=== PATIENT | female | born 1975 | race Caucasian/White ===

== ENCOUNTER 2022-11-07 16:41 | Emergency (ER) | payer OTHER ==
[~2022-11-07] VITALS: Ht 149.9 cm; Wt 79.0 kg
[2022-11-07 16:44] VITALS: BP 113/77
[2022-11-07 17:27] LABS: CLARITY,URINE CLEAR (Clear); COLOR,URINE YELLOW (Yellow); GLUCOSE, URINE NEGATIVE (Neg); KETONES,URINE NEGATIVE (Neg); LEUKOCYTE ESTERASE ,URINE NEGATIVE (Neg); NITRITES, URINE NEGATIVE (Neg); OCCULT BLOOD,URINE NEGATIVE (Neg); PROTEIN,URINE NEGATIVE (Neg); UROBILINOGEN,URINE 0.2 E.U/dL (0.2-1.0)
[2022-11-07 17:28] LABS: UA COLLECTION TYPE CLN CATCH MIDSTREAM
[2022-11-07] MEDS ORDERED: IBUP-1984 PO (17:34)
[2022-11-07] MEDS ORDERED: ketorolac tromethamine 15mg/ml inj. IM ONE (17:35)
== END 2022-11-07 18:04 | disposition home or self-care (01) ==
LOC: ER 16:42
DX: M54.50 Low back pain, unspecified (principal); Z88.5 Allergy status to narcotic agent
CPT/HCPCS: 81003; 96372; 99283; J1885

== ENCOUNTER 2022-11-11 20:51 | Emergency (ER) | payer OTHER ==
[~2022-11-11] VITALS: Ht 149.9 cm; Wt 77.7 kg
[~2022-11-11 20:51] MED LIST: IBUP-1984 PO
[2022-11-11 22:19] VITALS: BP 108/78
[2022-11-11] MEDS ORDERED: ondansetron/PF 4mg/2ml inj IV STA (22:30)
--- NOTE | 2022-11-11 22:40 | NUR ---
PT GIVEN FOOD AND MILK PER VO FROM ER PROVIDER
[2022-11-11 22:43] LABS: BASOPHILS # (AUTO) 0.1 X10'3 (0-0.2); BASOPHILS % (AUTO) 1.1 % (0-1); EOSINOPHILS # (AUTO) 0.3 X10'3 (0-0.9); EOSINOPHILS % (AUTO) 3.5 % (0-6); HEMOGLOBIN 12.8 g/dl (12.0-16.0); LYMPHOCYTES # (AUTO) 3.5 X10'3 (1.1-4.8); LYMPHOCYTES % (AUTO) 36.5 % (21-51); MEAN CORPUSCULAR HEMOGLOBIN 29.6 PG (27.0-31.0); MEAN CORPUSCULAR HGB CONC 33.7 g/dL (33.0-36.5); MEAN PLATELET VOLUME 9.3 FL (7.4-10.4); MONOCYTES # (AUTO) 0.8 X10'3 (0-0.9); MONOCYTES % (AUTO) 8.6 % (2-12); NEUTROPHILS # (AUTO) 4.9 X10'3 (1.8-7.7); NEUTROPHILS % (AUTO) 50.3 % (42-75); PLATELET COUNT 249 X10'3 (140-440); RED BLOOD COUNT 4.32 X10'6 (4.20-5.60); RED CELL DISTRIBUTION WIDTH 14.5 % (11.5-14.5); WHITE BLOOD COUNT 9.7 X10'3 (4.5-11.0)
[2022-11-11 23:04] LABS: ALANINE AMINOTRANSFERASE 24 U/L (12-78); ALBUMIN 3.8 G/DL (3.4-5.0); ALKALINE PHOSPHATASE 70 IU/L (46-116); ASPARTATE AMINO TRANSFERASE 20 U/L (10-37); BILIRUBIN,TOTAL 0.2 MG/DL (0.1-1.0); CALCIUM 9.7 MG/DL (8.5-10.1); LIPASE 71 U/L (73-393); TOTAL CARBON DIOXIDE 28.8 MMOL/L (24-32)
[2022-11-11 23:25] LABS: ANION GAP 10 (8-16); CHLORIDE 104 MMOL/L (99-107); GLUCOSE 94 MG/DL (70-104); POTASSIUM 4.2 MMOL/L (3.5-5.1); SODIUM 143 MMOL/L (135-145)
[2022-11-11 23:26] LABS: ALBUMIN/GLOBULIN RATIO 1.2 (1.1-1.5); BLOOD UREA NITROGEN 18 MG/DL (7-18); CREATININE 0.82 MG/DL (0.40-0.90); TOTAL PROTEIN 6.9 G/DL (6.4-8.2); eGFR 75 ML/MIN
[2022-11-11 23:31] LABS: CLARITY,URINE SLIGHTLY CLOUDY (Clear); COLOR,URINE YELLOW (Yellow); GLUCOSE, URINE NEGATIVE (Neg); KETONES,URINE NEGATIVE (Neg); LEUKOCYTE ESTERASE ,URINE MODERATE (Neg); NITRITES, URINE NEGATIVE (Neg); OCCULT BLOOD,URINE NEGATIVE (Neg); PH,URINE 6.5 (4.8-8.0); PROTEIN,URINE NEGATIVE (Neg); URINE HCG NEGATIVE (NEG); UROBILINOGEN,URINE 0.2 E.U/dL (0.2-1.0)
[2022-11-11 23:36] LABS: UA COLLECTION TYPE CLN CATCH MIDSTREAM
[2022-11-11 23:37] LABS: BACTERIA,URINE 1+ /HPF (Neg); RBC,URINE 0-2 /HPF (0-2); SQUAMOUS EPITHELIAL CELL,UR MANY /LPF (FEW); WBC,URINE 20-30 /HPF (0-4)
--- NOTE | 2022-11-12 00:27 | NUR ---
IV DC'D PT BEING DISCHARGED DRESSING APPLIED
== END 2022-11-12 00:30 | disposition home or self-care (01) ==
LOC: ER 20:51
DX: E16.2 Hypoglycemia, unspecified (principal); I10 Essential (primary) hypertension; J45.909 Unspecified asthma, uncomplicated; E11.9 Type 2 diabetes mellitus without complications; Z88.5 Allergy status to narcotic agent
CPT/HCPCS: 36415; 80053; 81001; 81025; 82948; 83690; 85025; 96374; 99283; J2405

== ENCOUNTER 2022-11-21 13:22 | Emergency (ER) | payer OTHER ==
[~2022-11-21] VITALS: Ht 149.9 cm; Wt 77.0 kg
[2022-11-21 14:11] LABS: BASOPHILS % (AUTO) 0.4 % (0-1); EOSINOPHILS # (AUTO) 0.2 X10'3 (0-0.9); EOSINOPHILS % (AUTO) 1.7 % (0-6); HEMATOCRIT 37.7 % (35.0-45.0); HEMOGLOBIN 12.2 g/dl (12.0-16.0); LYMPHOCYTES # (AUTO) 2.9 X10'3 (1.1-4.8); LYMPHOCYTES % (AUTO) 22.3 % (21-51); MEAN CORPUSCULAR HEMOGLOBIN 28.9 PG (27.0-31.0); MEAN CORPUSCULAR HGB CONC 32.4 g/dL (33.0-36.5); MEAN CORPUSCULAR VOLUME 89.1 FL (78-98); MEAN PLATELET VOLUME 9.1 FL (7.4-10.4); MONOCYTES # (AUTO) 1.1 X10'3 (0-0.9); MONOCYTES % (AUTO) 8.6 % (2-12); NEUTROPHILS # (AUTO) 8.9 X10'3 (1.8-7.7); PLATELET COUNT 254 X10'3 (140-440); RED BLOOD COUNT 4.24 X10'6 (4.20-5.60); RED CELL DISTRIBUTION WIDTH 14.4 % (11.5-14.5); WHITE BLOOD COUNT 13.2 X10'3 (4.5-11.0)
[2022-11-21 14:22] LABS: ALANINE AMINOTRANSFERASE 28 U/L (12-78); ALBUMIN 3.8 G/DL (3.4-5.0); ALKALINE PHOSPHATASE 75 IU/L (46-116); ANION GAP 7 (8-16); ASPARTATE AMINO TRANSFERASE 12 U/L (10-37); BILIRUBIN,TOTAL 0.2 MG/DL (0.1-1.0); BLOOD UREA NITROGEN 10 MG/DL (7-18); BUN/CREATININE RATIO 13.2 (10.0-20.0); CALCIUM 9.4 MG/DL (8.5-10.1); CHLORIDE 105 MMOL/L (99-107); CREATININE 0.76 MG/DL (0.40-0.90); GLUCOSE 125 MG/DL (70-104); POTASSIUM 3.9 MMOL/L (3.5-5.1); SODIUM 142 MMOL/L (135-145); TOTAL PROTEIN 7.7 G/DL (6.4-8.2); eGFR 82 ML/MIN
[2022-11-21 14:31] LABS: ETHANOL < 0.010 GM/DL (0.0-0.010)
[2022-11-21 14:43] LABS: CLARITY,URINE SLIGHTLY CLOUDY (Clear); COLOR,URINE STRAW (Yellow); GLUCOSE, URINE NEGATIVE (Neg); KETONES,URINE NEGATIVE (Neg); LEUKOCYTE ESTERASE ,URINE NEGATIVE (Neg); NITRITES, URINE NEGATIVE (Neg); OCCULT BLOOD,URINE NEGATIVE (Neg); PH,URINE 5.5 (4.8-8.0); PROTEIN,URINE NEGATIVE (Neg); UROBILINOGEN,URINE 0.2 E.U/dL (0.2-1.0)
[2022-11-21 14:45] LABS: UA COLLECTION TYPE CLN CATCH MIDSTREAM
[2022-11-21 14:50] LABS: SQUAMOUS EPITHELIAL CELL,UR MANY /LPF (FEW)
[2022-11-21 14:51] LABS: BACTERIA,URINE 1+ /HPF (Neg); RBC,URINE 0-2 /HPF (0-2)
[2022-11-21 15:04] LABS: URINE HCG NEGATIVE (NEG)
[2022-11-21 15:10] LABS: URINE AMPHETAMINE SCREEN NEGATIVE (Neg); URINE BARBITUATE SCREEN NEGATIVE (Neg); URINE BENZODIAZEPINES SCREEN NEGATIVE (Neg); URINE CANNABINOID SCREEN NEGATIVE (Neg); URINE COCAINE SCREEN NEGATIVE (Neg); URINE METHADONE SCREEN NEGATIVE (Neg); URINE OPIATE SCREEN NEGATIVE (Neg); URINE PHENCYCLIDINE SCREEN NEGATIVE (Neg)
[2022-11-21] MEDS ORDERED: LORazepam 1 MG tablet PO ONE (16:45)
[2022-11-21] MEDS ORDERED: haloperidol lactate 5mg/ml inj IM ONE (16:45)
[2022-11-21] MEDS ORDERED: CefTRIAXone 1000mg IM Kit (w/lidocaine diluent) IM ONE (18:00)
--- NOTE | 2022-11-21 19:13 | NUR ---
PT REQUESTED THAT I PROVIDE AN UPDATE TO HER REHAB COUNSELOR, PADMINI AT [phone].
[2022-11-21] MEDS ORDERED: ibuprofen tablet 400 MG TABLET PO ONE (20:25)
[2022-11-21] MEDS ORDERED: haloperidol lactate 5mg/ml inj IM STA (22:16)
--- NOTE | 2022-11-21 22:16 | NUR ---
PT STATES HER VOICES ARE COMING BACK AND REQUESTS MEDICATIONS, DR FLANAGAN NOTIFIED AND HE TOLD ME TO GIVE HER HALDOL 5 MG IM SO THAT WAS ORDERED.
--- NOTE | 2022-11-21 22:23 | NUR ---
NO SELBY/CHARTED ON WRONG PT.
[2022-11-22] MEDS ORDERED: LORazepam 2 mg/ml vial IM ONE (02:20)
[2022-11-22 04:13] VITALS: BP 138/82
--- NOTE | 2022-11-22 07:00 | NUR ---
Pt awake and ambulated to bathroom and back to room. Pt asking when she can "see somebody" as she reports she is feeling better and wanting to be discharged.
[2022-11-22] MEDS ORDERED: BECL10.6 INH (09:00)
[2022-11-22] MEDS ORDERED: VALA500T41 PO (09:00)
[2022-11-22] MEDS ORDERED: BENZ1TAB78 PO (09:00)
[2022-11-22] MEDS ORDERED: INSU100I8 SQ (09:00)
[2022-11-22] MEDS ORDERED: TRAZ-256 PO (09:00)
[2022-11-22] MEDS ORDERED: ARIP5TAB60 PO (09:00)
[2022-11-22] MEDS ORDERED: INSU100I31 SQ (09:00)
[2022-11-22] MEDS ORDERED: GABA300C PO (09:00)
[2022-11-22] MEDS ORDERED: METF-1203 PO (09:00)
[2022-11-22] MEDS ORDERED: LORA10TA7 PO (09:00)
[2022-11-22] MEDS ORDERED: SERT-433 PO (09:00)
--- NOTE | 2022-11-22 11:00 | NUR ---
Pt currently with [facility] special librarian at bedside.
[2022-11-22] MEDS ORDERED: CLINDAMYCIN 600mg IN NS 50ML 50 ML IV ONE (11:47)
[2022-11-22] MEDS ORDERED: gabapentin 300mg capsule PO SCH (13:00)
[2022-11-22] MEDS ORDERED: insulin Lispro (HumaLOG) vial - multi-dose SQ SCH (13:00)
[2022-11-22] MEDS ORDERED: ibuprofen tablet 400 MG TABLET PO ONE (13:20)
[2022-11-22] MEDS ORDERED: CLIN-97 PO (13:26)
[2022-11-22] MEDS ORDERED: CLIN300C17 PO (14:35)
[2022-11-22] MEDS ORDERED: metFORMIN 500mg tablet PO SCH (20:00)
[2022-11-22] MEDS ORDERED: valacyclovir 500mg tablet PO SCH (20:00)
[2022-11-22] MEDS ORDERED: budesonide 0.5mg/2ml UD nebule IH SCH (21:00)
[2022-11-22] MEDS ORDERED: insulin glargine (Lantus) pen - multi-dose SQ SCH (21:00)
[2022-11-22] MEDS ORDERED: traZODone 50mg tablet PO SCH (21:00)
[2022-11-23] MEDS ORDERED: benztropine 1mg tablet PO SCH (08:00)
[2022-11-23] MEDS ORDERED: sertraline 50mg tablet PO SCH (08:00)
[2022-11-23] MEDS ORDERED: loratadine 10mg tablet PO SCH (08:00)
[2022-11-23] MEDS ORDERED: aripiprazole 5mg tablet PO SCH (08:00)
== END 2022-11-22 14:43 | disposition home or self-care (01) ==
LOC: ER 13:23
DX: R45.851 Suicidal ideations (principal); Z20.822 Contact with and (suspected) exposure to COVID-19; R44.0 Auditory hallucinations; J36 Peritonsillar abscess; I10 Essential (primary) hypertension; J45.909 Unspecified asthma, uncomplicated; E11.9 Type 2 diabetes mellitus without complications; Z59.00 Homelessness unspecified; Z88.5 Allergy status to narcotic agent; Z79.899 Other long term (current) drug therapy
CPT/HCPCS: 36415; 80053; 80305; 80320; 81001; 81025; 82948; 84443; 85025; 87081; 87811; 87880; 96365; 96372; 99285; J0696; J1630; J1815; J2060; J3490

== ENCOUNTER 2022-11-23 08:41 | Emergency (ER) | payer OTHER ==
[~2022-11-23] VITALS: Ht 152.4 cm; Wt 72.7 kg
[~2022-11-23 08:41] MED LIST changes: +ARIP5TAB60 PO; +BECL10.6 INH; +BENZ1TAB78 PO; +CLIN-97 PO; +CLIN300C17 PO; +GABA300C PO; -IBUP-1984 PO; +INSU100I31 SQ; +INSU100I8 SQ; +LORA10TA7 PO; +METF-1203 PO; +SERT-433 PO; +TRAZ-256 PO; +VALA500T41 PO
[2022-11-23 08:55] VITALS: BP 122/80
== END 2022-11-23 10:07 | disposition home or self-care (01) ==
LOC: ER 08:42
DX: J36 Peritonsillar abscess (principal); I10 Essential (primary) hypertension; J45.909 Unspecified asthma, uncomplicated; E11.9 Type 2 diabetes mellitus without complications; Z56.0 Unemployment, unspecified
CPT/HCPCS: 99281

== ENCOUNTER 2022-11-24 08:04 | Emergency (ER) | payer OTHER ==
[~2022-11-24] VITALS: Ht 149.9 cm; Wt 77.7 kg
[2022-11-24 09:22] VITALS: BP 128/88
== END 2022-11-24 09:58 | disposition home or self-care (01) ==
LOC: ER 08:04
DX: G89.29 Other chronic pain (principal); M79.671 Pain in right foot; J45.909 Unspecified asthma, uncomplicated; I10 Essential (primary) hypertension; E11.9 Type 2 diabetes mellitus without complications; Z59.00 Homelessness unspecified; Z88.5 Allergy status to narcotic agent; Z79.899 Other long term (current) drug therapy; Z79.1 Long term (current) use of non-steroidal anti-inflammatories (NSAID); Z79.82 Long term (current) use of aspirin
CPT/HCPCS: 73630; 74019; 99284

== ENCOUNTER 2022-12-02 13:13 | Emergency (ER) | payer OTHER ==
[~2022-12-02] VITALS: Ht 149.9 cm; Wt 76.8 kg
[2022-12-02 13:27] VITALS: BP 112/73
[2022-12-02] MEDS ORDERED: predniSONE 20 mg tablet PO ONE (18:15)
[2022-12-02] MEDS ORDERED: PRED20TA PO (18:20)
== END 2022-12-02 18:44 | disposition home or self-care (01) ==
LOC: ER 13:14
DX: G51.0 Bell's palsy (principal); I10 Essential (primary) hypertension; J45.909 Unspecified asthma, uncomplicated; E11.9 Type 2 diabetes mellitus without complications; G89.29 Other chronic pain; F20.9 Schizophrenia, unspecified; Z56.0 Unemployment, unspecified; Z88.5 Allergy status to narcotic agent; Z79.4 Long term (current) use of insulin; Z79.899 Other long term (current) drug therapy
CPT/HCPCS: 82948; 99283; J7512

== ENCOUNTER 2022-12-05 13:46 | Emergency (ER) | payer OTHER ==
[~2022-12-05] VITALS: Ht 149.9 cm; Wt 77.0 kg
[~2022-12-05 13:46] MED LIST changes: +PRED20TA PO
[2022-12-05 13:50] VITALS: BP 129/78
== END 2022-12-05 14:44 | disposition home or self-care (01) ==
LOC: ER 13:47
DX: E11.65 Type 2 diabetes mellitus with hyperglycemia (principal); I10 Essential (primary) hypertension; J45.909 Unspecified asthma, uncomplicated; F20.9 Schizophrenia, unspecified; G89.29 Other chronic pain; Z59.00 Homelessness unspecified; Z88.5 Allergy status to narcotic agent; Z79.899 Other long term (current) drug therapy; Z79.1 Long term (current) use of non-steroidal anti-inflammatories (NSAID); Z79.2 Long term (current) use of antibiotics
CPT/HCPCS: 82948; 99282; 99283

== ENCOUNTER 2022-12-20 15:06 | Inpatient (IN) | payer MEDICAID, OTHER ==
[~2022-12-20] VITALS: Ht 149.9 cm; Wt 77.0 kg
[~2022-12-20 15:06] MED LIST changes: -PRED20TA PO
[2022-12-20 16:29] LABS: BASOPHILS # (AUTO) 0.1 X10'3 (0-0.2); BASOPHILS % (AUTO) 0.9 % (0-1); EOSINOPHILS # (AUTO) 0.3 X10'3 (0-0.9); EOSINOPHILS % (AUTO) 2.2 % (0-6); HEMOGLOBIN 12.1 g/dl (12.0-16.0); LYMPHOCYTES # (AUTO) 3.8 X10'3 (1.1-4.8); LYMPHOCYTES % (AUTO) 27.8 % (21-51); MEAN CORPUSCULAR HEMOGLOBIN 29.1 PG (27.0-31.0); MEAN CORPUSCULAR HGB CONC 32.6 g/dL (33.0-36.5); MEAN CORPUSCULAR VOLUME 89.3 FL (78-98); MEAN PLATELET VOLUME 9.3 FL (7.4-10.4); MONOCYTES # (AUTO) 1.2 X10'3 (0-0.9); MONOCYTES % (AUTO) 8.6 % (2-12); NEUTROPHILS # (AUTO) 8.4 X10'3 (1.8-7.7); NEUTROPHILS % (AUTO) 60.5 % (42-75); PLATELET COUNT 246 X10'3 (140-440); RED BLOOD COUNT 4.15 X10'6 (4.20-5.60); RED CELL DISTRIBUTION WIDTH 15.1 % (11.5-14.5); WHITE BLOOD COUNT 13.8 X10'3 (4.5-11.0)
[2022-12-20 16:33] LABS: ALANINE AMINOTRANSFERASE 25 U/L (12-78); ALBUMIN 3.6 G/DL (3.4-5.0); ALKALINE PHOSPHATASE 73 IU/L (46-116); ANION GAP 8 (8-16); ASPARTATE AMINO TRANSFERASE 16 U/L (10-37); BILIRUBIN,TOTAL 0.2 MG/DL (0.1-1.0); BLOOD UREA NITROGEN 17 MG/DL (7-18); BUN/CREATININE RATIO 24.6 (10.0-20.0); CALCIUM 9.4 MG/DL (8.5-10.1); CHLORIDE 100 MMOL/L (99-107); CREATININE 0.69 MG/DL (0.40-0.90); GLUCOSE 113 MG/DL (70-104); POTASSIUM 3.8 MMOL/L (3.5-5.1); SODIUM 135 MMOL/L (135-145); TOTAL CARBON DIOXIDE 27.1 MMOL/L (24-32); TOTAL PROTEIN 7.2 G/DL (6.4-8.2); eGFR > 90 ML/MIN
[2022-12-20] MEDS ORDERED: iohexol 350MG/ML 100ml bottle IV ONE (16:56)
[2022-12-20 17:11] LABS: APTT 30 SECONDS (22-32)
--- NOTE | 2022-12-20 17:14 | NUR ---
BRAYAN (WILL PHYSICAL METALLURGIST PT IF NEEDED) [phone]
[2022-12-20] MEDS: MESSAGE TO NURSING PO SCH (18:00)
--- NOTE | 2022-12-20 18:04 | NUR ---
pt requeted phone at bedside to talk to family.
[2022-12-20] MEDS ORDERED: potassium Cl 40MEQ/1/2NS 520ml 520 ML IV PRN (18:55)
[2022-12-20] MEDS ORDERED: aspirin 81mg tab.chew PO ONE (18:55)
[2022-12-20] MEDS ORDERED: magnesium 4gm in 100ml NS 100 ML IV PRN (18:55)
[2022-12-20] MEDS ORDERED: ondansetron/PF 4mg/2ml inj IV PRN (18:55)
[2022-12-20] MEDS ORDERED: magnesium hydroxide 30ml (MOM) UD suspension PO PRN (18:55)
[2022-12-20] MEDS ORDERED: acetaminophen 325mg tablet PO PRN ×2 (18:55)
[2022-12-20] MEDS ORDERED: PERFLUTREN PROTEIN-A MICROSPHR (Optison) 0.22 MG/ML 3ML VIAL IV ONE (18:55)
[2022-12-20] MEDS ORDERED: mag hydrox/Alum hydrox/simeth 30ml oral suspension PO PRN (18:55)
[2022-12-20] MEDS ORDERED: magnesium 2GM in 50ml NS 50 ML IV PRN (18:55)
[2022-12-20] MEDS ORDERED: magnesium Cl slow-release 64mg tablet PO PRN (18:55)
[2022-12-20] MEDS ORDERED: potassium Cl 20 mEq SR tablet PO PRN ×2 (18:55)
[2022-12-20] MEDS ORDERED: bisacodyl 10mg suppository rectal RC PRN (18:55)
[2022-12-20] MEDS: normal saline 1000ml 1,000 ML IV SCH (19:20)
[2022-12-20] MEDS: clopidogrel 75mg tablet PO SCH (19:21)
[2022-12-20] MEDS: docusate sod 100mg capsule PO SCH (19:21)
[2022-12-20 19:36] LABS: HEMOGLOBIN A1C 6.3 % (4.5-6.2)
[2022-12-20 19:38] LABS: CHOLESTEROL 125 MG/DL (0-200)
[2022-12-20 19:39] LABS: CHOL/HDL RATIO 2.1 (0.00-4.99); HDL CHOLESTEROL 60 MG/DL (35-60); LDL CHOLESTEROL 41 MG/DL (50-100); TRIGLYCERIDES 84 MG/DL (20-135)
[2022-12-20] MEDS ORDERED: SERT-434 PO (20:12)
[2022-12-20] MEDS: K and/or MAG REPLACEMENT MC SCH (20:13)
--- NOTE | 2022-12-20 20:34 | NUR ---
Report given to me by Clarisse FERNANDEZ.
--- NOTE | 2022-12-20 20:40 | NUR ---
Pt arrived to room 4021B via gurney and she was assisted to the bed without difficulty.Orientated her to call light,tv,phone and that she needs to call for help and not to get out of bed on her own.
[2022-12-20 21:00] VITALS: BP 100/60
[2022-12-20] MEDS ORDERED: LISI40TA13 PO (22:26)
[2022-12-20] MEDS ORDERED: LISI5TAB22 PO (22:28)
[2022-12-20] MEDS: aripiprazole 5mg tablet PO SCH (22:55)
--- NOTE | 2022-12-20 23:00 | NUR ---
Around this time I completed her admitting questions and have paged the personal development educator doctor to resume her home medications. I also reviewed the [facility] intervention and it gave her a high risk for self harm due to she had attempted self harm within the last 3 months. She denies any thoughts of hurting self and does not have any plan to hurt herself at this time. I called the nursing track supervisor in regards to the intervention saying pt needs to be a 1:1 observation based on the findings of the questions. She said pt does not need to be observed 1:1 since there is no documentation of wanting to self harm now and she has no plan to hurt self now. No staff to watch a 1:1 and patient not verbalizing wanting to self harm.
[2022-12-20] MEDS ORDERED: DEXTROSE 15 GM of carb/4 tabs (each vial/BOTTLE has 4 tablets) PO PRN ×2 (23:10)
[2022-12-20] MEDS ORDERED: glucagon, human recombinant 1mg kit SUBCUT PRN (23:10)
[2022-12-20] MEDS ORDERED: MESSAGE TO PHARMACY PO ONE (23:10)
[2022-12-20] MEDS ORDERED: insulin Lispro (HumaLOG) vial - multi-dose SQ SCH (23:10)
[2022-12-20] MEDS ORDERED: dextrose 50%-water 50ml dispensing syringe IV PRN ×2 (23:10)
[2022-12-20] MEDS ORDERED: traZODone 50mg tablet PO ONE (23:35)
[2022-12-20] MEDS ORDERED: gabapentin 300mg capsule PO ONE (23:35)
[2022-12-20] MEDS ORDERED: insulin glargine (Lantus) pen - multi-dose SQ ONE (23:35)
[2022-12-20] MEDS ORDERED: valacyclovir 500mg tablet PO ONE (23:35)
[2022-12-21] VITALS (9 sets, daily range): BP systolic 93–128; BP diastolic 57–86
[2022-12-21] MEDS: normal saline 1000ml 1,000 ML IV SCH ×2 (05:01→21:18)
--- NOTE | 2022-12-21 06:56 | NUR ---
Problems reprioritized. Patient report given, questions answered & plan of care reviewed with Re FERNANDEZ.
[2022-12-21] MEDS ORDERED: PERFLUTREN PROTEIN-A MICROSPHR (Optison) 0.22 MG/ML 3ML VIAL IV ONE (07:00)
[2022-12-21 07:42] LABS: BASOPHILS % (AUTO) 0.7 % (0-1); EOSINOPHILS # (AUTO) 0.2 X10'3 (0-0.9); EOSINOPHILS % (AUTO) 2.3 % (0-6); HEMATOCRIT 35.4 % (35.0-45.0); HEMOGLOBIN 11.8 g/dl (12.0-16.0); LYMPHOCYTES # (AUTO) 2.2 X10'3 (1.1-4.8); MEAN CORPUSCULAR HEMOGLOBIN 29.7 PG (27.0-31.0); MEAN CORPUSCULAR HGB CONC 33.3 g/dL (33.0-36.5); MEAN CORPUSCULAR VOLUME 89.2 FL (78-98); MEAN PLATELET VOLUME 9.6 FL (7.4-10.4); MONOCYTES # (AUTO) 0.6 X10'3 (0-0.9); MONOCYTES % (AUTO) 8.9 % (2-12); NEUTROPHILS # (AUTO) 4.2 X10'3 (1.8-7.7); NEUTROPHILS % (AUTO) 58.1 % (42-75); PLATELET COUNT 215 X10'3 (140-440); RED BLOOD COUNT 3.97 X10'6 (4.20-5.60); RED CELL DISTRIBUTION WIDTH 15.2 % (11.5-14.5); WHITE BLOOD COUNT 7.2 X10'3 (4.5-11.0)
[2022-12-21] MEDS: budesonide 0.5mg/2ml UD nebule IH SCH ×2 (08:17→20:33)
[2022-12-21 08:27] LABS: ALBUMIN 3.2 G/DL (3.4-5.0); ANION GAP 9 (8-16); BILIRUBIN,TOTAL 0.2 MG/DL (0.1-1.0); BLOOD UREA NITROGEN 9 MG/DL (7-18); BUN/CREATININE RATIO 17.3 (10.0-20.0); CALCIUM 8.8 MG/DL (8.5-10.1); CHLORIDE 107 MMOL/L (99-107); CREATININE 0.52 MG/DL (0.40-0.90); GLUCOSE 100 MG/DL (70-104); MAGNESIUM 1.9 MG/DL (1.5-2.4); POTASSIUM 3.7 MMOL/L (3.5-5.1); SODIUM 141 MMOL/L (135-145); TOTAL CARBON DIOXIDE 25.3 MMOL/L (24-32); TOTAL PROTEIN 6.6 G/DL (6.4-8.2); eGFR > 90 ML/MIN
[2022-12-21 08:28] LABS: ALANINE AMINOTRANSFERASE 26 U/L (12-78); ALBUMIN/GLOBULIN RATIO 0.9 (1.1-1.5); ALKALINE PHOSPHATASE 66 IU/L (46-116); ASPARTATE AMINO TRANSFERASE 17 U/L (10-37)
[2022-12-21] MEDS: K and/or MAG REPLACEMENT MC SCH ×2 (08:31→19:42)
[2022-12-21] MEDS: aripiprazole 5mg tablet PO SCH (09:55)
[2022-12-21] MEDS: loratadine 10mg tablet PO SCH (09:57)
[2022-12-21] MEDS: sertraline 50mg tablet PO SCH (09:57)
[2022-12-21] MEDS: aspirin 81mg tab.chew PO SCH (09:57)
[2022-12-21] MEDS: clopidogrel 75mg tablet PO SCH (09:57)
[2022-12-21] MEDS: gabapentin 300mg capsule PO SCH ×4 (09:57→21:18)
[2022-12-21] MEDS: docusate sod 100mg capsule PO SCH ×2 (09:58→20:00)
[2022-12-21] MEDS: valacyclovir 500mg tablet PO SCH ×2 (09:58→21:18)
[2022-12-21] MEDS: insulin Lispro (HumaLOG) vial - multi-dose SQ SCH ×3 (10:02→19:07)
--- NOTE | 2022-12-21 11:19 | NUR ---
DM Consult: Pt hx DM A1C 6.3% appropriate per ADA guidelines. Addendum: 12/21/22 at [address] Amended: Links added.
--- NOTE | 2022-12-21 12:21 | NUR ---
lunch tray is here, patient eating rather than being treated for one point low. Addendum: 12/21/22 at 1221 by Re Lieberman RN Amended: Links added.
[2022-12-21] MEDS: MESSAGE TO NURSING PO SCH (18:00)
--- NOTE | 2022-12-21 18:28 | NUR ---
Problems reprioritized. Patient report given, questions answered & plan of care reviewed with Hillary FERNANDEZ.
[2022-12-21] MEDS ORDERED: traZODone 50mg tablet PO SCH (21:00)
[2022-12-21] MEDS ORDERED: insulin glargine (Lantus) pen - multi-dose SQ SCH (21:00)
[2022-12-22] MEDS: normal saline 1000ml 1,000 ML IV SCH ×2 (00:55→10:55)
[2022-12-22 02:00] VITALS: BP 96/90
--- NOTE | 2022-12-22 06:21 | NUR ---
Patient in room [facility] 4021. I have received report from Hillary Tellez RN and had the opportunity to ask questions and assume patient care.
[2022-12-22 06:36] LABS: BASOPHILS # (AUTO) 0.1 X10'3 (0-0.2); BASOPHILS % (AUTO) 0.7 % (0-1); EOSINOPHILS # (AUTO) 0.3 X10'3 (0-0.9); EOSINOPHILS % (AUTO) 3.5 % (0-6); HEMATOCRIT 35.6 % (35.0-45.0); HEMOGLOBIN 11.8 g/dl (12.0-16.0); LYMPHOCYTES # (AUTO) 2.4 X10'3 (1.1-4.8); LYMPHOCYTES % (AUTO) 31.7 % (21-51); MEAN CORPUSCULAR HEMOGLOBIN 29.7 PG (27.0-31.0); MEAN CORPUSCULAR HGB CONC 33.2 g/dL (33.0-36.5); MEAN CORPUSCULAR VOLUME 89.4 FL (78-98); MEAN PLATELET VOLUME 9.4 FL (7.4-10.4); MONOCYTES # (AUTO) 0.7 X10'3 (0-0.9); NEUTROPHILS # (AUTO) 4.2 X10'3 (1.8-7.7); NEUTROPHILS % (AUTO) 55.1 % (42-75); PLATELET COUNT 219 X10'3 (140-440); RED BLOOD COUNT 3.98 X10'6 (4.20-5.60); RED CELL DISTRIBUTION WIDTH 15.2 % (11.5-14.5); WHITE BLOOD COUNT 7.7 X10'3 (4.5-11.0)
[2022-12-22 06:39] LABS: ANION GAP 8 (8-16); BLOOD UREA NITROGEN 7 MG/DL (7-18); BUN/CREATININE RATIO 11.9 (10.0-20.0); CALCIUM 8.7 MG/DL (8.5-10.1); CHLORIDE 105 MMOL/L (99-107); CREATININE 0.59 MG/DL (0.40-0.90); GLUCOSE 101 MG/DL (70-104); POTASSIUM 3.7 MMOL/L (3.5-5.1); SODIUM 140 MMOL/L (135-145); TOTAL CARBON DIOXIDE 26.8 MMOL/L (24-32); eGFR > 90 ML/MIN
[2022-12-22 06:40] LABS: ALANINE AMINOTRANSFERASE 24 U/L (12-78); ALBUMIN 3.2 G/DL (3.4-5.0); ALBUMIN/GLOBULIN RATIO 0.9 (1.1-1.5); ALKALINE PHOSPHATASE 65 IU/L (46-116); ASPARTATE AMINO TRANSFERASE 14 U/L (10-37); BILIRUBIN,TOTAL 0.2 MG/DL (0.1-1.0); TOTAL PROTEIN 6.7 G/DL (6.4-8.2)
[2022-12-22] MEDS: clopidogrel 75mg tablet PO SCH (07:40)
[2022-12-22] MEDS: loratadine 10mg tablet PO SCH (07:40)
[2022-12-22] MEDS: sertraline 50mg tablet PO SCH (07:40)
[2022-12-22] MEDS: aripiprazole 5mg tablet PO SCH (07:40)
[2022-12-22] MEDS: aspirin 81mg tab.chew PO SCH (07:40)
[2022-12-22] MEDS: gabapentin 300mg capsule PO SCH (07:40)
[2022-12-22] MEDS: valacyclovir 500mg tablet PO SCH (07:40)
[2022-12-22] MEDS: docusate sod 100mg capsule PO SCH (07:40)
[2022-12-22] MEDS: insulin Lispro (HumaLOG) vial - multi-dose SQ SCH (08:00)
[2022-12-22] MEDS: K and/or MAG REPLACEMENT MC SCH (08:00)
[2022-12-22] MEDS: budesonide 0.5mg/2ml UD nebule IH SCH (08:47)
[2022-12-22] MEDS ORDERED: ASPI81TA53 PO (11:36)
[2022-12-22] MEDS ORDERED: CLOP75TA34 PO (11:36)
[2022-12-22] MEDS ORDERED: SERT150C PO (11:36)
--- NOTE | 2022-12-22 12:35 | NUR ---
HELIO documentation: I have reviewed and agree with all interventions, assessments performed and documented by Artem CADET. Addendum: 12/22/22 at 1236 by Re Lieberman RN No new findings noted.
--- NOTE | 2022-12-22 12:40 | NUR ---
Pt stable for discharge. IV D/C. Patient left with all belongings. Left acute at 12:37. Patient walked out of hospital with staff member from [email or web address] when patient resides currently. Patient left in private vehicle with staff member from [facility].
[2022-12-23 12:52] LABS: HBSAG SCREEN Negative (Negative); HEP B CORE AB, TOT Negative (Negative)
== END 2022-12-22 12:37 | disposition home or self-care (01) | DRG 47 ==
LOC: ER 15:06 → ED HOLD 18:57 → EDBEDREQ 19:55 → ORTHO 4S 20:42
PROVIDERS: ADMIT Family Medicine; ATTEND Family Medicine
PROC: B3251ZZ Computerized Tomography (CT Scan) of Bilateral Common Carotid Arteries using Low Osmolar Contrast (ICD-10-PCS; principal; 2022-12-20)
PROC: B32G1ZZ Computerized Tomography (CT Scan) of Bilateral Vertebral Arteries using Low Osmolar Contrast (ICD-10-PCS; 2022-12-20)
PROC: B32R1ZZ Computerized Tomography (CT Scan) of Intracranial Arteries using Low Osmolar Contrast (ICD-10-PCS; 2022-12-20)
PROC: B3281ZZ Computerized Tomography (CT Scan) of Bilateral Internal Carotid Arteries using Low Osmolar Contrast (ICD-10-PCS; 2022-12-20)
DX: G45.9 Transient cerebral ischemic attack, unspecified (principal); E11.9 Type 2 diabetes mellitus without complications; E78.5 Hyperlipidemia, unspecified; F20.9 Schizophrenia, unspecified; J45.909 Unspecified asthma, uncomplicated; G89.29 Other chronic pain; I10 Essential (primary) hypertension; Z79.4 Long term (current) use of insulin; Z90.711 Acquired absence of uterus with remaining cervical stump; Z56.0 Unemployment, unspecified; Z88.5 Allergy status to narcotic agent; Z79.899 Other long term (current) drug therapy; Z90.49 Acquired absence of other specified parts of digestive tract
CPT/HCPCS: 36415; 70450; 70496; 70498; 70551; 71045; 80053; 80061; 82948; 83036; 83735; 84443; 85025; 85610; 85730; 86704; 86705; 86706; 87081; 87340; 92508; 92616; 93005; 93306; 94640; 94760; 97110; 97116; 97161; 97530; 97535; 99285; G0378; J1815; J3490; J7030; Q9967